=== PATIENT | female | born 1970 | race African-American/Black ===

== ENCOUNTER 2020-09-13 08:14 | Emergency (ER) | payer MEDICAID ==
[~2020-09-13] VITALS: Ht 165.1 cm; Wt 73.5 kg
[2020-09-13] MEDS ORDERED: KETOROLAC 60MG/2ML VIAL IM ONE (08:45)
[2020-09-13] MEDS ORDERED: METH-773 MT (09:50)
[2020-09-13] MEDS ORDERED: IBUP-2029 MT (09:50)
[2020-09-13 10:12] VITALS: BP 118/61
== END 2020-09-13 10:15 | disposition home or self-care (01) ==
LOC: ER 08:14
DX: M54.31 Sciatica, right side (principal); M77.31 Calcaneal spur, right foot; R03.0 Elevated blood-pressure reading, without diagnosis of hypertension
CPT/HCPCS: 73650; 96372; 99283; J1885

== ENCOUNTER 2020-09-24 08:37 | Emergency (ER) | payer MEDICAID ==
[~2020-09-24] VITALS: Ht 157.5 cm; Wt 50.0 kg
[~2020-09-24 08:37] MED LIST: IBUP-2029 MT; METH-773 MT
[2020-09-24] MEDS ORDERED: DEXAMETHASONE 10 MG/ML VIAL IM ONE (09:15)
[2020-09-24] MEDS ORDERED: HYDROCODONE/ACETAMINOPHEN 5/325MG TABLET PO ONE (09:15)
[2020-09-24] MEDS ORDERED: HYDR-4346 MT (09:17)
[2020-09-24 09:28] VITALS: BP 121/61
[2020-09-24] MEDS ORDERED: OXYC-100 MT (10:11)
== END 2020-09-24 09:34 | disposition home or self-care (01) ==
LOC: ER 08:37
DX: M54.31 Sciatica, right side (principal); M77.31 Calcaneal spur, right foot; R03.0 Elevated blood-pressure reading, without diagnosis of hypertension
CPT/HCPCS: 96372; 99283; J1100

== ENCOUNTER 2020-10-18 18:20 | Emergency (ER) | payer MEDICAID ==
[~2020-10-18] VITALS: Ht 165.1 cm; Wt 62.0 kg
[~2020-10-18 18:20] MED LIST changes: +HYDR-4346 MT; +OXYC-100 MT
[2020-10-18 19:26] LABS: BASOPHILS % 0.8 % (0.0-2.0); HEMATOCRIT. 38.6 % (36.0-48.0); LYMPHOCYTES % 35.2 % (20.0-50.0); MEAN CORPUSCULAR HEMOGLOBIN 29.5 pg (28.0-32.0); MEAN CORPUSCULAR VOLUME 87.4 fL (81.0-99.0); MEAN PLATELET VOLUME 7.5 fl (7.4-10.4); MONOCYTES % 5.1 % (2.0-8.0); NEUTROPHILS % 56.9 % (40.0-76.0); PLATELET 263 x1000/uL (130-400); RED BLOOD CELL COUNT 4.41 mill/uL (4.2-5.4); RED CELL DISTRIBUTION WIDTH 13.8 % (11.6-14.6)
[2020-10-18 19:30] LABS: CHLORIDE 111 mEq/L (98-107)
[2020-10-18 19:33] LABS: HCG SCREEN NEGATIVE; PROTHROMBIN TIME 10.8 sec (9.6-11.0)
[2020-10-18 20:03] VITALS: BP 127/51
== END 2020-10-18 20:01 | disposition home or self-care (01) ==
LOC: ER 18:20
DX: N93.8 Other specified abnormal uterine and vaginal bleeding (principal)
CPT/HCPCS: 36415; 80053; 84703; 85025; 99283

== ENCOUNTER 2021-12-21 11:06 | Emergency (ER) | payer MEDICAID ==
[~2021-12-21] VITALS: Ht 157.5 cm; Wt 64.0 kg
[2021-12-21] MEDS ORDERED: T3 PO (11:18)
[2021-12-21 11:22] VITALS: BP 127/81
[2021-12-21] MEDS ORDERED: ACETAMINOPHEN WITH CODEINE 300/30MG TABLET PO ONE (11:30)
== END 2021-12-21 11:57 | disposition home or self-care (01) ==
LOC: ER 11:06
DX: M77.31 Calcaneal spur, right foot (principal)
CPT/HCPCS: 99283

== ENCOUNTER 2022-12-30 13:28 | Emergency (ER) | payer MEDICAID ==
[~2022-12-30] VITALS: Ht 167.6 cm; Wt 74.0 kg
[~2022-12-30 13:28] MED LIST changes: +T3 PO
[2022-12-30 13:41] VITALS: TEMP 98.3; O2SAT 97
[2022-12-30 14:13] LABS: EOSINOPHILS % 2.1 % (0.0-5.0); HEMATOCRIT. 38.7 % (36.0-48.0); HEMOGLOBIN. 12.7 g/dL (12.0-16.0); LYMPHOCYTES % 27.9 % (20.0-50.0); MEAN CORPUSCULAR HEMOGLOBIN 26.9 pg (28.0-32.0); MEAN CORPUSCULAR HGB CONC 32.7 g/dL (31.0-37.0); MEAN CORPUSCULAR VOLUME 82.3 fL (81.0-99.0); MEAN PLATELET VOLUME 7.4 fl (7.4-10.4); PLATELET 324 x1000/uL (130-400); RED CELL DISTRIBUTION WIDTH 14.3 % (11.6-14.6); WHITE BLOOD COUNT 5.7 x1000/uL (4.5-11.0)
[2022-12-30 14:21] LABS: CHLORIDE 107 mEq/L (98-107); INDEX HEMOLYSI 1 (1-3); INDEX ICTERIC 1 (1-4); INDEX LIPEMIC 1 (1-3); SODIUM 139 mEq/L (136-145)
[2022-12-30 14:25] LABS: PROTHROMBIN TIME 10.3 sec (9.6-11.0)
[2022-12-30 14:31] LABS: ALANINE AMINOTRANSFERASE 28 IU/L (13-61); ALBUMIN 3.7 g/dL (3.4-5.0); ASPARTATE AMINOTRANSFERASE 22 IU/L (15-37); BILIRUBIN TOTAL 0.4 mg/dL (0.1-1.0); CALCIUM 9.1 mg/dL (8.5-10.1); CARBON DIOXIDE 27 mEq/L (21-32); PROTEIN TOTAL 7.7 g/dL (6.0-8.3); UREA NITROGEN BLOOD 8 mg/dL (7-21)
[2022-12-30 15:43] LABS: GLUCOSE 97 mg/dL (70-105)
[2022-12-30 17:05] VITALS: BP 146/77; PULSE 78; RESP 16
== END 2022-12-30 17:05 | disposition home or self-care (01) ==
LOC: ER 13:28
DX: R60.0 Localized edema (principal)
CPT/HCPCS: 36415; 80053; 85025; 93971; 99284